=== PATIENT | female | born 1980 | race American Indian/Alaskan Native ===

== ENCOUNTER 2016-08-21 11:50 | Day surgery (SDC) | payer OTHER, MEDICARE ==
[~2016-08-21 11:50] MED LIST: LACTATED RINGERS 1,000 ML IV SCH; PEPCID PO NR; VANCOMYCIN/NS 1 GM/250 ML 1 GM/250 ML BAG IV NR; VERSED IV NR
--- NOTE | 2016-08-21 12:43 | Anesthesia Day of Surgery ---
Anesthesia Day of Surgery - Day of Surgery Patient Examined: Yes Patient H&P Reviewed: Yes Patient is NPO: Yes Beta Blockers: Yes Cardiac Clearance: Yes
--- NOTE | 2016-08-21 12:44 | Anesthesia Consultation ---
Anesthesia Consult and Med Hx Date of service: 08/21/16 - Airway Anesthetic Teeth Evaluation: Good ROM Head & Neck: Adequate Mental/Hyoid Distance: Adequate Mallampati Class: Class II Intubation Access Assessment: Probably Good - Pulmonary Exam CTA: Yes - Cardiac Exam Cardiac Exam: RRR - Pre-Operative Health Status ASA Pre-Surgery Classification: ASA3 Proposed Anesthetic Plan: General - Pulmonary Hx Smoking: No Hx Asthma: Yes (SEASONAL IN [place]) Hx Sleep Apnea: No - Cardiovascular System Hx Hypertension: Yes (FOR 5+ YRS) Hx Valvular Heart Disease: Yes (MVP) - Central Nervous System Hx Seizures: Yes (2014 X 1, POSSIBLY DUE TO MEDS SHE WAS ON) Hx Back Pain: Yes Hx Psychiatric Problems: Yes - Endocrine Hx Renal Disease: Yes (CKD STAGE 1) Hx Insulin Dependent Diabetes: No (PRE DIABETES) - Hematic Hx Anemia: Yes - Other Systems Hx Alcohol Use: No Hx Cancer: No
[2016-08-21] MEDS ORDERED: ZOFRAN IV PRN (12:45)
[2016-08-21] MEDS ORDERED: PEPCID PO NR (13:00)
[2016-08-21] MEDS ORDERED: VERSED IV NR (13:00)
[2016-08-21 13:11] LABS: Hematocrit 36.2 % (30.3-42.9)
[2016-08-21] MEDS ORDERED: MARCAINE 0.25% INFILTRATI ONE ×2 (13:39→15:04)
[2016-08-21] MEDS ORDERED: DILAUDID ONE (13:39)
[2016-08-21] MEDS ORDERED: ZOFRAN ONE (13:40)
[2016-08-21] MEDS ORDERED: DIPRIVAN 10 MG/ML IV ONE ×2 (13:40→14:59)
[2016-08-21] MEDS ORDERED: XYLOCAINE MPF 2% ONE (13:40)
[2016-08-21] MEDS ORDERED: DECADRON ONE (13:40)
[2016-08-21] MEDS ORDERED: QUELICIN ONE (13:56)
--- NOTE | 2016-08-21 14:35 | Admit Criteria Form ---
Admission Criteria Documentation: AMBULATORY SURGERY EXCEPTION CRITERIA Ambulatory Surgery Exception Criteria ( Place 'X' for any and all applicable criteria): Surgery or procedure performed on ambulatory basis may require inpatient stay for[A] ANY ONE of the following(1)(2)(3)(4)(5)(6)(7)(8)(9): [X] I. A preoperative situation, condition, or finding that warrants inpatient stay as indicated by ANY ONE of the following: [] a) Inpatient care needed because of severity of a disease or condition rather than the surgery (eg, severe cardiac or respiratory disease, severe infection) (15) (16 ) (17) (18) [] b) Emergent procedure (eg, angioplasty for acute ischemia)(19) [] c) Complex surgical approach or situation as indicated by ANY ONE of the following(3): [] i) Open approach needed instead of usual endoscopic, transcatheter, or other less invasive procedure [] ii) Difficult approach because of previous operation [] iii) Airway monitoring required after open neck procedures(20)(21) [] iv) Large mass requiring unusually extensive dissection [] v) Additional complicating feature requiring inpatient care (eg, drain management)(22(23): [X] d) Major surgery in a pt with high anesthetic risk as indicated by ANY ONE of the following (2)(3)(5)(7)(8): [X] i) ASA risk class III or higher (severe systemic disease impairing function) [D] [] ii) Advanced age (eg, older than 85 years)(14)(24) [] iii) Symptomatic heart failure(25) [] iv) Symptomatic asthma or COPD(8)(21) [] v) Morbid obesity with hemodynamic or respiratory problems(20)( 21)(26)(27) [] vi) Obstructive sleep apnea(20)(21) [] vii) Former premature infants who are younger than 60 weeks [] viii) High risk for severe postoperative abnormalities (eg, severe postoperative hypocalcemia after parathyroidectomy for severe hyperparathyroidism)(27)( 28) [] ix) Unstable angina(25) [] e) Drug-related risk requiring inpatient stay as indicated by ANY ONE of the following(5)(10)(14)(32)(33) [] i) Procedure requires discontinuing drugs or other therapy (eg , antiarrhythmic medication, antiseizure medication), which necessitates inpatient observation or treatment.(18)(31) [] ii) Major surgery and high risk drug use as indicated by ANY ONE of the following: [] 1) Active abuse of cocaine or similar drug [] 2) Monoamine oxidase inhibitor use [] 3) Other drug identified as posing risk [] f) Inadequate outpatient care situation as indicated by ANY ONE of the following(5)(10)(14)(32)(33) [] i) Patient lives remote from medical facility and procedure has urgent complication potential, and temporary nearby residence cannot be arranged [] ii) Patient will have postprocedure incapacitation and inadequate assistance at home, or alternative level of care cannot be arranged. [] iii) Patient will have long general anesthesia or procedure side effect resolution time, and competent person to stay with patient on first postoperative night at home or alternative level of care cannot be arranged. []iv) Other inadequate outpatient situation that cannot be handled by other means [] II. A perioperative event, condition, or finding that warrants inpatient stay as indicated by ANY ONE of the following (1)(2)(3): [] a) Inadequate physiologic recovery: cardiovascular, respiratory, or hemodynamic status not normal or near preoperative baseline(18) [] b) Hemodynamic instability [] c) Patient not alert with near normal or baseline mental status [] d) Temperature not normal or as expected and not appropriate for outpatient treatment of condition [] e) Ambulatory or appropriate activity level status not yet achieved post procedure [E](34)(35)(36) [] f) Operative site not appropriate (eg, unexpected or excessive drainage or bleeding) [] g) Postoperative effects not resolved or adequately managed (eg, significant pain or vomiting not appropriate for outpatient or next level of care)(10)(12) [] h) Complicating features requiring inpatient care as indicated by ANY ONE of the following(37): [] i) Severe complications of procedure (eg, bowel injury, airway compromise, vascular injury,severe hemorrhage) [] ii) Extensive (eg, dissection far beyond usual scope of procedure ) or prolonged (eg, 120 minutes beyond usual) surgery needed requiring inpatient postoperative care [] iii) Conversion to an open or complex procedure that requires inpatient care (eg, open vs laparoscopic cholecystectomy, abdominal vs vaginal hysterectomy)(38) [] iv) Comorbid condition or test result identified during or post procedure that requires inpatient care (7) [] v) Malignant hyperthermia(30) [] vi) Other complicating feature requiring inpatient care(22)(23) Inpatient stay may be needed until ALL of the following are present (1)(2)(3)(4) (5)(6)(10)(14)(33)(40): []a) Physiologic recovery: cardiovascular, respiratory, and hemodynamic status normal or near preoperative baseline []b) Hemodynamic stability []c) Patient alert, with near normal or baseline mental status []d) Temperature appropriate: patient afebrile or temperature appropriate for outpt treatment of condition []e) Activity level appropriate: ambulatory or appropriate activity level post procedure []f) Operative site appropriate as indicated by ALL of the following: []i) Site dry or with expected drainage []ii) Any blood noted is as expected for procedure. []g) Postoperative effects resolved or managed as indicated by ALL of the following: []i) Pain management appropriate for outpatient (or next level of) care(10) []ii) Minimal nausea and vomiting: if present, successfully treated with oral medication(12) []iii) Headache, dizziness, or drowsiness (if present) are mild. []h) Voiding status acceptable as indicated by ANY ONE of the following: []i) Voiding spontaneously []ii) No voiding but instructions given for follow-up in 6 to 8 hours []iii) Urinary catheter in place, and instructions given for follow-up []i) Complicating features requiring inpatient care manageable at a lower level of care(37) []j) Comorbid conditions manageable at a lower level of care(37) The original [employer] content created by [employer] has been revised. The portions of the content which have been revised are identified through the use of italic text or in bold, and [facility] [employer] has neither reviewed nor approved the modified material. All other unmodified content is copyright [employer]. Please see references footnoted in the original [employer] edition 2016 Admission Criteria Met: Yes
[2016-08-21] MEDS ORDERED: SUBLIMAZE ONE (15:01)
[2016-08-21] MEDS ORDERED: NACL 0.9% IR ONE (15:03)
--- NOTE | 2016-08-21 15:33 | Discharge Summary ---
Short Stay Discharge Plan Activity: no restrictions Diet: regular Wound: open to air, other (May shower and wash incisions in 2 days) Follow up with: CHIKIS MOSELEY [Other] - 7 Days HANH REYES MD [Staff Physician] - 7 Days Prescriptions: oxyCODONE /ACETAMINOPHEN [Percocet 5/325] 1 - 2 tab PO Q6HR PRN #40 tablet PRN Reason: Pain Promethazine [Phenergan TAB] 25 mg PO Q6HR PRN #10 tab PRN Reason: Nausea
--- NOTE | 2016-08-21 15:35 | Post Operative Note ---
Pre-op diagnosis: biliary colic with cholecystitis Post-op diagnosis: same Findings: Evidence of chronic cholecystitis Procedure: Laparoscopic cholecystectomy Anesthesia: GETA Surgeon: HANH REYES Pig Machine Operator Helper: ROC ALVARADO Estimated blood loss: none Pathology: list (gallbladder) Specimen disposition: to lab Condition: stable Disposition: PACU
[2016-08-21] MEDS ORDERED: NORMODYNE IV ONE (16:10)
[2016-08-21] MEDS: DILAUDID IV PRN ×2 (16:35→16:45)
[2016-08-21 17:23] VITALS: BP 153/84
[2016-08-21] MEDS ORDERED: PERCOCET 5/325 PO PRN (17:30)
--- NOTE | 2016-08-21 19:19 | Operative Report ---
PREOPERATIVE DIAGNOSIS: Biliary colic with cholelithiasis. POSTOPERATIVE DIAGNOSIS: Biliary colic with cholelithiasis. PROCEDURE: Laparoscopic cholecystectomy. SURGEON: Karen Lieberman MD GR[employer] AND [employer] TEACHER: Dr. Adrian Morrison. TYPE OF ANESTHESIA: General. ESTIMATED BLOOD LOSS: None. INDICATIONS: This is a 36-year-old woman noted to have intermittent right upper quadrant pain with nausea. Symptoms were postprandial. She was noted to have gallstones and thought to have biliary colic. FINDINGS: The patient was noted to have evidence for chronic cholecystitis with somewhat inflamed gallbladder. DESCRIPTION OF PROCEDURE: The patient was brought to the operating room, laid supine on the table. After adequate general endotracheal anesthesia was obtained, her abdomen was prepped and draped in the usual fashion. Initially 0.25% Marcaine was infiltrated in the superior aspect of the umbilicus, small incision was made, a Veress needle was inserted and abdominal cavity was insufflated to an adequate pressure. Next, a 5 mm port was placed and 5 mm 30-degree scope was introduced. At this point, the three subcostal ports were placed under direct visualization after infiltrating the skin with 0.25% Marcaine, 2 lateral 5 mm port and epigastric 11 mm port were placed. Attention was then turned to the gallbladder. It appeared to be somewhat edematous gallbladder was grasped and retracted cephalad. Dissection was begun at the neck. The cystic duct and cystic artery were identified at the triangle of Calot's they were going to the gallbladder. These structures were endoclipped proximally and distally and then divided. Next, attention was turned to ____ the gallbladder off the liver bed. This was done using hook cautery. Once the gallbladder was freed completely, it was retrieved using a specimen retrieval bag through the 11 mm port site. Hemostasis was ascertained in the liver bed and the three subcostal ports were then removed under direct visualization and then the umbilical port was removed and as much CO2 as possible was evacuated. All the port sites were reapproximated using 4-0 Monocryl in subcuticular fashion. The wounds were dressed with skin glue. The patient tolerated the procedure. There were no immediate complications. All counts were reported as correct. JOB# [id number] /NTS
--- NOTE | 2016-08-21 20:18 | Post Anesthesia Evaluation ---
- Post Anesthesia Evaluation Patient Participated: Yes Airway Patent: Yes Stable Respiratory Function: Yes Nausea/Vomiting: No Temp > 96.8F: Yes Pain Manageable: Yes Adequeate Hydration: Yes Anesthesia Complications: No
== END 2016-08-21 18:25 | disposition home or self-care (01) ==
LOC: OR 11:50
PROVIDERS: ATTEND Surgery
DX: K80.64 Calculus of gallbladder and bile duct with chronic cholecystitis without obstruction (principal); I12.9 Hypertensive chronic kidney disease with stage 1 through stage 4 chronic kidney disease, or unspecified chronic kidney disease; N18.1 Chronic kidney disease, stage 1; F31.9 Bipolar disorder, unspecified; D64.9 Anemia, unspecified; Z86.79 Personal history of other diseases of the circulatory system; Z88.1 Allergy status to other antibiotic agents; Z98.890 Other specified postprocedural states; Z79.899 Other long term (current) drug therapy; Z80.3 Family history of malignant neoplasm of breast; Z80.0 Family history of malignant neoplasm of digestive organs
CPT/HCPCS: 36415; 47562; 81025; 85014; 85018; 88304; J0330; J1100; J1170; J2250; J2405; J2704; J3010; J3370; J7120

== ENCOUNTER 2017-04-13 08:42 | Outpatient (CLI) | payer OTHER, MEDICARE ==
--- NOTE | 2017-04-13 12:46 | XRay Report ---
XRAY RIGHT KNEE 4 THREE VIEWS: 04/13/17 CLINICAL: Right knee pain. FINDINGS: Mild osteopenia. No fracture or dislocation. Mild osteoarthritis of the medial joint space with mild narrowing of the joint space and small osteophytes. Slight widening of the lateral joint space. Normal patellofemoral joint.No joint effusion.Normal soft tissues. IMPRESSION: Minimal arthritis.
== END 2017-04-13 08:43 | disposition home or self-care (01) ==
LOC: SPVIMAG 08:42
PROVIDERS: ATTEND Orthopaedic Surgery
DX: M17.11 Unilateral primary osteoarthritis, right knee (principal); M85.861 Other specified disorders of bone density and structure, right lower leg